=== PATIENT | male | born 1960 | race Caucasian/White ===

== ENCOUNTER 2017-01-22 21:43 | Emergency (ER) | payer MEDICARE ==
[2016-02-27 22:13] VITALS: BMI 23.6
[~2017-01-22 21:43] MED LIST: AMBIEN10 MG PO; ASPIRIN325 MG PO; BACLOFEN20 M1 PO; LOPRESSOR25 MG PO; LYRICA75 MG PO; MOBIC7.5 MG PO; PERCOCET 7.5/321 TAB PO; PLAVIX75 MG PO; PRAVACHOL20 MG PO; ZANTAC150 MG PO
[2017-01-22 23:42] LABS: HEMATOCRIT 39.4 % (42.0-54.0); HEMOGLOBIN 13.6 g/dL (13.5-17.5); LYMPHOCYTES 48.1 % (15-50); MCH 30.6 pg (26.0-34.0); MCHC 34.5 g/dL (31.0-37.0); MCV 88.5 fL (80.0-100.0); NEUTROPHILS 36.5 % (40-80); PLATELET COUNT 191 10x3/uL (130-400); RBC 4.45 10x6/uL (4.20-6.10); RDW 13.3 % (11.5-14.5)
[2017-01-22 23:55] LABS: ALBUMIN 3.5 g/dL (3.4-5.0); ALKALINE PHOSPHATASE 101 U/L (46-116); ALT (SGPT) 100 U/L (10-68); BILIRUBIN - TOTAL 0.67 mg/dL (0.2-1.3); CALC OSMOLALITY 264 mosm/kg (275-300); CALCIUM 8.3 mg/dL (8.5-10.1); CARBON DIOXIDE 24.7 mmol/L (21.0-32.0); CHLORIDE - SERUM 99 mmol/L (98-107); GLUCOSE 115 mg/dL (74-106); POTASSIUM - SERUM 4.2 mmol/L (3.5-5.1); PROTEIN - SERUM 7.5 g/dL (6.4-8.2); SODIUM 130 mmol/L (136-145); UREA NITROGEN 20 mg/dL (7-18); eGFR NON AFRICAN AMERICAN 83 mL/min (90-120)
[2017-01-23 02:14] LABS: CKMB 0.6 U/L (0.0-3.6); CREATINE KINASE 101 UL (21-232); TROPONIN-I < 0.017 ng/mL (0.000-0.060)
== END 2017-01-23 02:43 | disposition home or self-care (01) ==
LOC: D.ER 21:43
PROVIDERS: Family Medicine; Physician Assistant Medical
DX: T67.5XXA Heat exhaustion, unspecified, initial encounter (principal); R94.31 Abnormal electrocardiogram [ECG] [EKG]; R53.83 Other fatigue; R50.9 Fever, unspecified; J44.9 Chronic obstructive pulmonary disease, unspecified; F17.200 Nicotine dependence, unspecified, uncomplicated